=== PATIENT | female | born 1980 | race Two or more races ===

== ENCOUNTER 2022-10-21 10:14 | Emergency (ER) | payer MEDICAID ==
[~2022-10-21] VITALS: Ht 167.6 cm; Wt 65.8 kg
[2022-10-21 10:41] VITALS: BP 123/76
--- NOTE | 2022-10-21 11:00 | NUR ---
Mbulatory-BRP. Gait even/steady
[2022-10-21] MEDS ORDERED: NAPR-1164 PO (12:53)
[2022-10-21] MEDS ORDERED: CYCL5TAB PO (12:53)
--- NOTE | 2022-10-21 12:59 | NUR ---
soft collar applied as directed- Patient discharged to home in stable condition. Written and verbal after care instructions given. Patient verbalizes understanding of instruction.
== END 2022-10-21 12:59 | disposition home or self-care (01) ==
LOC: ER 10:24
DX: S06.0X0A Concussion without loss of consciousness, initial encounter (principal); S13.4XXA Sprain of ligaments of cervical spine, initial encounter; Z79.899 Other long term (current) drug therapy; V80.010A Animal-rider injured by fall from or being thrown from horse in noncollision accident, initial encounter; Y93.52 Activity, horseback riding; Y92.89 Other specified places as the place of occurrence of the external cause; Y99.8 Other external cause status
CPT/HCPCS: 70450-TC; 72125-TC